=== PATIENT | male | born 1945 ===

== ENCOUNTER 2017-05-22 13:36 | Emergency (ER) | payer MEDICARE ==
[2017-05-22 13:40] VITALS: BP 102/68; PULSE 83; RESP 17; TEMP 97; O2SAT 97
[2017-05-22] MEDS ORDERED: Sodium Chloride 0.9% 1,000 ML IV STA (13:47)
--- NOTE | 2017-05-22 13:52 | ED PDOC ---
HPI: General Adult Time Seen by Provider: 05/22/17 13:42 Chief Complaint (Nursing): Dizziness/Lightheaded Chief Complaint (Provider): Dizziness History Per: Patient History/Exam Limitations: no limitations Onset/Duration Of Symptoms: Days (1 week) Current Symptoms Are (Timing): Still Present Additional Complaint(s): The patient is a 71yo male, PMHx of asthma, back problems, kidney stones, presents to the ED for evaluation of dizziness, associated with nausea, vomiting , diarrhea, for the past week. Patient denies any fever, abdominal pain, bloody stool. He offers no additional medical complaints. Past Medical History Reviewed: Historical Data, Nursing Documentation, Vital Signs Vital Signs: Last Vital Signs Temp 97 F L 05/22/17 13:38 Pulse 83 05/22/17 13:38 Resp 17 05/22/17 13:38 BP 102/68 05/22/17 13:38 Pulse Ox 97 05/22/17 13:59 - Medical History PMH: Asthma, Back Problems (sciatica), Kidney Stones Denies: Chronic Kidney Disease - Surgical History Surgical History: Cholecystectomy - Family History Family History: States: Unknown Family Hx - Immunization History Hx Tetanus Toxoid Vaccination: Yes Hx Influenza Vaccination: Yes Hx Pneumococcal Vaccination: No - Home Medications Home Medications: Ambulatory Orders Medication Instructions Recorded Albuterol 0.5% [Albuterol 0.5% 5 mg IH Q12 PRN 02/21/15 Inhal Mehnaz (2.5 mg/0.5 ml) UD] Acetaminophen [Tylenol 325mg tab] 325 mg PO Q4 01/11/17 Cyclobenzaprine [Flexeril] 5 mg PO BID #6 tab 01/11/17 oxyCODONE/Acetaminophen [Percocet 1 tab PO Q6 01/11/17 5/325 mg Tab] Ondansetron [Zofran] 4 mg PO Q8H #10 tab 05/22/17 - Allergies Allergies/Adverse Reactions: Allergies Allergy/AdvReac Type Severity Reaction Status Date / Time Penicillins Allergy RASH Verified 05/22/17 13:38 Review of Systems ROS Statement: Except As Marked, All Systems Reviewed And Found Negative Constitutional: Negative for: Fever, Chills Gastrointestinal: Positive for: Nausea, Vomiting, Diarrhea. Negative for: Abdominal Pain, Hematochezia Neurological: Positive for: Weakness Physical Exam - Reviewed Nursing Documentation Reviewed: Yes Vital Signs Reviewed: Yes - Physical Exam Appears: Positive for: Well, Non-toxic, No Acute Distress Head Exam: Positive for: ATRAUMATIC, NORMAL INSPECTION, NORMOCEPHALIC Skin: Positive for: Normal Color, Warm, DRY Eye Exam: Positive for: Normal appearance Neck: Positive for: Normal, Supple Cardiovascular/Chest: Positive for: Regular Rate, Rhythm Respiratory: Positive for: Normal Breath Sounds. Negative for: Respiratory Distress Gastrointestinal/Abdominal: Positive for: Normal Exam, Soft. Negative for: Tenderness Neurologic/Psych: Positive for: Alert, Oriented. Negative for: Motor/Sensory Deficits - Laboratory Results Result Diagrams: 05/22/17 14:01 05/22/17 14:01 - ECG O2 Sat by Pulse Oximetry: 97 (RA) Pulse Ox Interpretation: Normal Medical Decision Making Medical Decision Making: Time: 1350 Impression: Weakness with associated nausea, vomiting, diarrhea Plan: -- EKG -- Labs -- NS 1L, 200ml/hr Reassess Scribe Attestation: Documented by Bere Faria acting as a scribe for Jonathan Reed MD. Provider Attestation: All medical record entries made by the Scribe were at my direction and personally dictated by me. I have reviewed the chart and agree that the record accurately reflects my personal performance of the history, physical exam, medical decision making, and the department course for this patient. I have also personally directed, reviewed, and agree with the discharge instructions and disposition. Disposition - Clinical Impression Clinical Impression: Gastroenteritis - Patient ED Disposition Is Patient to be Admitted: No Counseled Patient/Family Regarding: Studies Performed, Diagnosis, Need For Followup, Rx Given - Disposition Referrals: [facility] [Outside] Disposition: Routine/Home Disposition Time: 14:50 Condition: FAIR Prescriptions: Ondansetron [Zofran] 4 mg PO Q8H #10 tab Instructions: Gastroenteritis (ED)
[2017-05-22 14:16] LABS: ALB/GLOB RATIO 1.2 (1.0-2.1); ALBUMIN 4.3 g/dL (3.5-5.0); ALT/SGPT 31 U/L (21-72); AST/SGOT 35 U/L (17-59); BLOOD UREA NITROGEN 19 mg/dl (9-20); CALCIUM 9.2 mg/dL (8.4-10.2); GFR AFRICAN-AMERICAN > 60; GFR NON-AFRICAN AMERICAN > 60
[2017-05-22 14:22] LABS: BASO % 0.5 % (0.0-2.0); EOS # 0.1 K/uL (0.0-0.7); EOS % 0.9 % (0.0-4.0); HEMOGLOBIN 13.3 g/dL (12.0-18.0); LYMPH # 0.9 K/uL (1.0-4.3); LYMPH % 9.6 % (20.0-40.0); MEAN CELL VOLUME 97.1 fl (80.0-94.0); MEAN CORPUSCULAR HEMOGLOBIN 32.5 pg (27.0-31.0); MEAN CORPUSCULAR HGB CONC 33.5 g/dL (33.0-37.0); MEAN PLATELET VOLUME 12.2 fl (7.2-11.7); MONO # 0.8 K/uL (0.0-0.8); MONO % 8.5 % (0.0-10.0); NEUT # 7.5 K/uL (1.8-7.0); NEUT % 80.5 % (50.0-75.0); PLATELET COUNT 168 K/uL (130-400); RBC 4.08 Mil/uL (4.40-5.90); RED CELL DISTRIBUTION WIDTH 13.5 % (11.5-14.5); WHITE BLOOD COUNT 9.3 K/uL (4.8-10.8)
[2017-05-22 15:36] LABS: EOSINOPHIL 1 % (0-7); LARGE PLATELETS PRESENT; LYMPHOCYTE 10 % (20-50); MONOCYTE 10 % (0-10); NEUTROPHIL 79 % (42-75); PLATELET ESTIMATE NORMAL (NORMAL); TOTAL CELLS COUNTED 100
--- NOTE | 2017-05-23 08:43 | CARD ---
APPROVED REPORT EKG Measurement Heart [id number] <Conclusion> Normal sinus rhythm Normal ECG
== END 2017-05-22 15:32 | disposition home or self-care (01) ==
LOC: H.ER 13:36
DX: K52.9 Noninfective gastroenteritis and colitis, unspecified (principal); Z88.0 Allergy status to penicillin
CPT/HCPCS: 80053; 82948; 85025; 93005; 99285; J7040